=== PATIENT | female | born 1985 | race African-American/Black ===

== ENCOUNTER 2021-04-12 17:00 | Outpatient (CLI) | payer OTHER ==
[~2021-04-12] VITALS: Ht 162.6 cm; Wt 67.3 kg
[2021-04-12 17:16] VITALS: BP 115/64
[2021-04-12] MEDS ORDERED: MULTTAB20 PO (17:20)
[2021-04-12] MEDS ORDERED: ASPI81TA26 PO (17:20)
[2021-04-12] MEDS ORDERED: FISH306C PO (17:22)
[2021-04-12] MEDS ORDERED: ASCO250T20 PO (17:22)
[2021-04-12] MEDS ORDERED: IRON27TA2 PO (17:22)
[2021-04-12 18:54] LABS: APPEARANCE, URINE CLEAR (CLEAR); BACTERIA, URINE AUTO 1+ (NEGATIVE); BILIRUBIN, URINE AUTO NEGATIVE (NEGATIVE); BLOOD, URINE BLOOD NEGATIVE (NEGATIVE); COLOR, URINE STRAW (YELLOW); GLUCOSE, URINE (UA) AUTO NEGATIVE (NEGATIVE); KETONE, URINE AUTO NEGATIVE (NEGATIVE); LEUKOCYTE ESTERASE, URINE AUTO NEGATIVE (NEGATIVE); NITRITE, URINE AUTO NEGATIVE (NEGATIVE); PROTEIN, URINE AUTO NEGATIVE (NEGATIVE); RBC, URINE AUTO 0 /HPF (0-3); SPECIFIC GRAVITY URINE AUTO 1.005 (1.002-1.035); SQUAMOUS EPITHELIAL CELL UR AU 0 /HPF (0-6); UROBILINOGEN, URINE AUTO 0.2 mg/dL (0.0-2.0); WBC, URINE AUTO 1 /HPF (0-3)
[2021-04-14 11:43] LABS: GC DNA AMPLIFICATION NEGATIVE (NEGATIVE)
== END 2021-04-12 19:30 | disposition home or self-care (01) ==
LOC: M LDO 17:00
PROVIDERS: ATTEND Obstetrics & Gynecology Reproductive Endocrinology
DX: O26.893 Other specified pregnancy related conditions, third trimester (principal); R10.2 Pelvic and perineal pain; Z3A.31 31 weeks gestation of pregnancy; O09.513 Supervision of elderly primigravida, third trimester; Z88.2 Allergy status to sulfonamides; Z79.899 Other long term (current) drug therapy
CPT/HCPCS: 59025; 76815; 81001; 87086; 87661; G0378; G0463

== ENCOUNTER 2021-06-04 01:59 | Outpatient (CLI) | payer OTHER ==
[~2021-06-04] VITALS: Ht 162.6 cm; Wt 74.1 kg
[~2021-06-04 01:59] MED LIST: ASCO250T20 PO; ASPI81TA26 PO; FISH306C PO; IRON27TA2 PO; MULTTAB20 PO
[2021-06-04] MEDS ORDERED: HOME MED LIST COMPLETE! XX SCH (03:10)
[2021-06-04 03:16] VITALS: BP 120/70
--- NOTE | 2021-06-04 05:17 | IPNPDOC ---
Obstetrical Progress Note Date of Service Jun 04, 2021 Objective Vital Signs Date Time Temp Pulse Resp B/P (MAP) Pulse Ox O2 Delivery O2 Flow Rate FiO2 06/04/21 03:16 98.2 95 16 120/70 (87) Assessment Heart Rate (FHR): 130 Variability: Moderate Accelerations: Positive Decelerations: None Heart Rate Tracing: Category I Tocometer Contractions: Yes Frequency: irregular Sterile Vaginal Examination Dilation: 1cm Effacement (%): 50% Station: -3 Cervical Consistency: Soft Cervical Position: Posterior Postion/Presentation: Cephalic presentation (by US) Assessment and Plan Status: Reassuring Additional Comments Ms. Choi is a 35yo at 39+3 who presents for a labor check. She denied VB, LOF, decreased FM. She denied otherwise a 12 point ROS. VS normal. CAT I NST reactive. Irregular contractions. SVE 1cm and 1cm on 2h repeat exam. TAUS cephalic, MVP 6.5cm, +FM. Eminent active labor is unlikely at this time. I discussed with the patient that I recommend induction of labor as she is AMA and A1GDM and is at 39wk. She was educated on the risk of stillbirth. She declined and signed an against medical advice form. Educated on routine ob return precautions. Educated on kick counts. Reports has APFT testing scheduled for next week. BETZY TRUJILLO DO Jun 04, 2021 05:17
== END 2021-06-04 05:00 | disposition home or self-care (01) ==
LOC: M LDO 01:59
PROVIDERS: ATTEND Obstetrics & Gynecology
DX: O60.03 Preterm labor without delivery, third trimester (principal); Z3A.39 39 weeks gestation of pregnancy; O24.410 Gestational diabetes mellitus in pregnancy, diet controlled; O09.513 Supervision of elderly primigravida, third trimester; O99.820 Streptococcus B carrier state complicating pregnancy; O99.343 Other mental disorders complicating pregnancy, third trimester; F32.9 Major depressive disorder, single episode, unspecified; O98.513 Other viral diseases complicating pregnancy, third trimester; B00.89 Other herpesviral infection; Z88.2 Allergy status to sulfonamides
CPT/HCPCS: 59025; G0378; G0463

== ENCOUNTER 2021-06-04 20:24 | Inpatient (IN) | payer OTHER ==
[~2021-06-04] VITALS: Ht 162.6 cm; Wt 71.8 kg
[2021-06-04] MEDS ORDERED: PENICILLIN G POTASSIUM IV 5 MU in D5W MINI-BAG PLUS 100 ML IV STA ×2 (21:15→23:42)
[2021-06-04 21:25] VITALS: BP 98/60
[2021-06-04] MEDS ORDERED: miSOPROStol 50MCG 1/2 TABLET PO SCH (21:25)
[2021-06-04 21:37] LABS: HEMATOCRIT 36.2 % (36.0-47.0); HEMOGLOBIN 12.3 g/dl (12.0-15.5); MEAN CORPUSCULAR HEMOGLOBIN 31.9 pg (27.0-33.0); PLATELET COUNT, AUTOMATED 168 10^3/uL (150-450); RED BLOOD COUNT 3.85 10^6/uL (4.00-5.40); WHITE BLOOD COUNT 8.6 10^3/uL (4.0-10.0)
[2021-06-05] VITALS (50 sets, daily range): BP systolic 84–155; BP diastolic 46–79
[2021-06-05] MEDS ORDERED: FENTANYL 2MCG/ML ROPIVACAINE 0.2% IN 0.9% NACL 100ML IVBAG As Ordered ONE ×2 (00:08→08:34)
--- NOTE | 2021-06-05 00:28 | HPEPDOC ---
Obstetrical History & Physical General Date of Admission Jun 04, 2021 at 21:13 History of Present Illness The patient is a 36 yo G1 at 39+4 week gestation by LMP C/W 11 week ultrasound admitted for IOL FOR AMA. She denies any vaginal bleeding, abnormal vaginal discharge, leakage of fluids, urinary symptoms, or regular contractions. She denies any new headaches, visual abnormalities, chest pain, worsening dyspnea, facial swelling, or upper extremity swelling. At this time, she continues to report regular movement. 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 Past Medical History Surgical History: Denies/None Family History Significant Family History: No pertinent family hx Social History Marital Status: Family situation: Spouse/partner home Psychosocial History: Depression * Smoker: non-smoker Alcohol: Denies Abuse Violence Screening Have you been hit/kicked/slapp: No Have you been sexually assault: No Imunizations Tdap status: current Influenza Status: current Allergies Coded Allergies: Sulfa (Sulfonamide Antibiotics) (Verified Allergy, Intermediate, HIVES, 04/12/21) Medications Scheduled Ascorbic Acid (Vitamin C) 250 Mg Tablet, 1 TAB PO BID Aspirin (Aspirin EC) 81 Mg Tablet.dr, 1 TAB PO DAILY for pain Ferrous Gluconate (Iron) 236 Mg Tablet, 1 TAB PO DAILY Muse-3/Dha/Epa/Fish Oil (Fish Oil 500 mg Softgel) 1 Each Capsule, 1 CAP PO DAILY No122/Iron/Folic Acid ( Multi Tablet) 1 Each Tablet, 1 TAB PO DAILY Physical Examination Physical Examination GENERAL: Alert and oriented times three. BREAST: . ABDOMEN: Gravid and non-tender to touch. FETUS: Is vertex (VTX) by sterile vaginal examination (SVE) HEART RATE: Regular rate and rhythm. LUNGS: Clear to auscultation (CTA). EXTREMITIES: No edema. No clonus. sve /-1 Vital Signs/I&O Vital Signs Date Time Temp Pulse Resp B/P (MAP) Pulse Ox O2 Delivery O2 Flow Rate FiO2 06/04/21 21:25 97.7 94 98/60 (73) Laboratory Data 24H LABS Laboratory Tests 2 06/04/21 21:16: Serology Scanned Report Hepatitis B Testing 06/04/21 21:24: Nucleated Red Blood Cells % (auto) 0.0 CBC/BMP Laboratory Tests 06/04/21 21:24 Urine Culture: No Growth Pertinent Laboratoy Data Blood Type: O+ RBC Antibody Screen: Negative HIV: Negative Hepatitis B: Negative Hepatitis C: Unknown Rapid Plasma Reagin: Nonreactive Rubella: Immune Varicella: Immune Chlamydia/Gonorrhea: Negative Group B Streptococcus: Positive Quad Screen Test: Negative Cystic Fibrosis: Negative Anatomy Ultrasound Ultrasound Date: Jan 20, 2021 Placenta Location: Posterior Normal Anatomy: Yes Vaginal Examination Dilation: 5 cm Effacement: 80% Station: -1 Cervical Consistency: Soft Cervical Position: Anterior Presentation: Cephalic presentation Assessment Heart Rate (FHR): 140 Variability: Moderate Accelerations: Positive Decelerations: None Tocometer Contractions: Yes Frequency: regular Multi-drug resistant Organism: No history of MDRO Assessment/Plan Assessment Assessment: The patient is a 36 yo G1 at 39+4 week gestation by LMP C/W 11 week ultrasound admitted for IOL FOR AMA. Category I FHRT. APC: 1. AMA- Low risk NIPT 2. A1GDM 3. Depression- well controlled 4. Cervical HSV- on valtrex since 36 weeks, no s/s neg Exam on admission 5. GBS pos- no pcn allergies SVE: /-1 GBS POS Cephalic by exam EFW 3000G RH POS Plan Plan: - Admit to L&D. - Consent signed and given to RN - CBC with type and screen. - EFM x2 - Anesthesia to see - Risks of augmentation with Cytotec, and Pitocin discussed with patient. - GBS Positive. PCN ordered -CERVICAL RIPING WAS STARTED WITH 50MCG OF ORAL CYTOTEC, WILL NOW ALLOW TO GET EPIDURAL THEN START PITOCIN Labor and Delivery Counseling We will deliver your baby through the vagina with possible assistance of forceps or vacuum device if needed for maternal or indications. Forceps and vacuum are devices that can assist with vaginal delivery when normal pushing efforts cannot achieve delivery on their own or when delivery is needed in an emergency for baby's well-being. Medications may be required to induce or augment (help) your labor in order to achieve a vaginal delivery. An episiotomy may be required to help your baby to delivery vaginally. You may also require repair of any lacerations or tears of your vagina or vulva that are caused by delivery. In some cases, emergencies can occur that require an emergency section delivery so quickly that there may not be enough time to stop and complete consent forms for section. Understand that if this occurs, your providers will discuss the need for a section with you before they proceed with surgery. section is the delivery of your baby through an incision in your abdomen. In some situations, section may be safer to mom and baby than continuing labor and is only performed when clinically indicated. Risks of vaginal delivery include but are not limited to: Bleeding, infection, injury to the vagina, pelvic structures, injury to baby, damage to the uterus, reactions to anesthesia, uterine rupture, risk of hysterectomy for life threatening bleeding, or . Medications used to induce or augment labor may increase your risk for infection, uterine tachysystole, uterine rupture, heart rate abnormalities, need for emergency delivery or possible hysterectomy, and hemorrhage. Additional risks for use of forceps and vacuum include: increased risk of perineal and vaginal lacerations, risk of urinary or bowel incontinence, increased risk of injury to baby with bruising, scratches, hematomas on the head, or intracranial bleeding. MARIANA GOETZ MD Jun 04, 2021 11:52 pm
[2021-06-05] MEDS ORDERED: PENICILLIN G POTASSIUM IV 2.5 MU in IV 1 EA IV SCH (01:15)
--- NOTE | 2021-06-05 01:18 | IPNPDOC ---
Obstetrical Progress Note Date of Service Jun 05, 2021 Subjective to room for assessment. patient now feeling comfortable. fht: 140, mod tremaine,+accwels, -Decels--Cat I tracing SVE: /-1, AROM CLEAR TOCO: 4-5/10 A/P ACTIVE LABOR. CAT i TRACING. ANTICIPATE . Objective Vital Signs Date Time Temp Pulse Resp B/P (MAP) Pulse Ox O2 Delivery O2 Flow Rate FiO2 06/04/21 21:25 97.7 94 98/60 (73) MARIANA GOETZ MD Jun 05, 2021 01:18
[2021-06-05] MEDS ORDERED: ePHEDrine SULFATE 25 MG/5 ML(5MG/ML) SYRINGE As Ordered ONE (01:24)
[2021-06-05] MEDS: ePHEDrine SULFATE 25 MG/5 ML(5MG/ML) SYRINGE IV PRN ×3 (01:25→01:41)
[2021-06-05] MEDS ORDERED: EPIDURAL COMMENT XX SCH (01:30)
[2021-06-05] MEDS ORDERED: FENTANYL/ROPIVACAINE/NACL BAG 100 ML EPIDURAL SCH (01:30)
[2021-06-05] MEDS ORDERED: diphenhydrAMINE 50MG/ML VIAL (J1200) IV PRN (01:30)
[2021-06-05] MEDS ORDERED: NALOXONE INJ 0.4MG/1ML VIAL (J2310 PER 1MG) IV PRN (01:30)
[2021-06-05] MEDS ORDERED: EPIDURAL/PCA KEYS XX PRN (01:30)
[2021-06-05] MEDS ORDERED: ONDANSETRON 4MG/2ML VIAL IV PRN (01:30)
[2021-06-05] MEDS ORDERED: REFRIGERATOR IV KEYS XX PRN (01:30)
[2021-06-05] MEDS ORDERED: TERBUTALINE SULFATE 1 MG/ML VIAL (J3105) SC ONE (02:55)
[2021-06-05] MEDS: PENICILLIN G POTASSIUM IV 2.5 MU in IV 1 EA IV SCH ×3 (04:15→13:20)
--- NOTE | 2021-06-05 09:13 | IPNPDOC ---
Obstetrical Progress Note Date of Service Jun 05, 2021 Subjective TO room for assessment. Patient is comfortable in bed. fht: 150, mod tremaine,+accels, -decel--Cat I Tracing Rozel: 01/24/10, patient had tachysystole around 3 am and was given one dose on 0.25mg of terbutaline. she has only received 50mcg of cytotec for induction and she continues to have regular contrations SVE: Lateral lip on the left side, c/0, caput felt A/P Active labor. lateral lip left. continue active management. cat I tracing. anticipate . Objective Vital Signs Date Time Temp Pulse Resp B/P (MAP) Pulse Ox O2 Delivery O2 Flow Rate FiO2 06/05/21 08:12 85 18 119/71 (87) 06/05/21 07:11 98.2 MARIANA GOETZ MD Jun 05, 2021 09:13
[2021-06-05] MEDS ORDERED: OXYTOCIN INJ 10 UNITS/ML VIAL (J2590) IV PRN (09:40)
[2021-06-05] MEDS ORDERED: OXYTOCIN DRIP 30 UNITS in IV 1 EA IV PRN ×6 (09:40)
[2021-06-05] MEDS ORDERED: OXYTOCIN INJ 10 UNITS/ML VIAL (J2590) IM PRN (09:40)
[2021-06-05] MEDS ORDERED: LIDOCAINE 1% MDV 20ML VIAL INFIL PRN (09:40)
[2021-06-05] MEDS ORDERED: METHYLERGONOVINE MALEATE 0.2 MG/ML VIAL (J2210) IM PRN (09:40)
[2021-06-05] MEDS ORDERED: TRANEXAMIC ACID INJection 1,000 MG in NS 100 ML IV PRN (09:40)
[2021-06-05] MEDS ORDERED: CARBOPROST TROMETHAMINE 250 MCG/ML AMP IM PRN (09:40)
[2021-06-05] MEDS: LACTATED RINGER'S 1000 ML IV PRN ×2 (10:47→16:59)
[2021-06-05] MEDS ORDERED: OXYTOCIN DRIP 30 UNITS in IV 1 EA IV SCH ×2 (13:55→17:55)
[2021-06-05 17:21] LABS: CORD GAS ABE A -9.2; CORD GAS HCO3 A 20.2 MEQ/L; CORD GAS O2 SAT A 63.3 %; CORD GAS PH A 7.159 UNITS; CORD GAS PO2 A 28.7 mmHg; CORD GAS SBC A 16.5 MEQ/L; CORD GAS TCO2 A 21.9 MEQ/L
[2021-06-05 17:23] LABS: CORD GAS ABE V -8.3; CORD GAS HCO3 V 16.9 MEQ/L; CORD GAS O2 SAT V 92.9 %; CORD GAS PCO2 V 34.4 mmHg; CORD GAS PH V 7.31 UNITS; CORD GAS PO2 V 52.5 mmHg; CORD GAS SBC V 17.8 MEQ/L
[2021-06-05] MEDS ORDERED: DOCUSATE SODIUM 100MG CAPSULE PO PRN (17:55)
[2021-06-05] MEDS ORDERED: MOM 30ML SUSPENSION UDC PO PRN (17:55)
[2021-06-05] MEDS ORDERED: DIBUCAINE 1% OINTMENT 30GM TOP PRN (17:55)
[2021-06-05] MEDS ORDERED: ANUSOL HC CREAM 30GM TOP PRN (17:55)
--- NOTE | 2021-06-05 18:19 | DNPDOC ---
[facility] Delivery Note Delivery Note DATE OF DELIVERY:06/04/2021 PREDELIVERY DIAGNOSIS: 39-3/7 weeks' gestation and labor. POST DELIVERY DIAGNOSIS: shoulder dystocia PROCEDURE: shoulder dystocia TETRYL BOILING TUB OPERATOR: Dr. Mariana vallecillo ANESTHESIA: epidural ESTIMATED BLOOD LOSS: 200 mL. FINDINGS: shouldert dystocia , pound 8 #9ounce 3888g Make , Score / DELIVERY SUMMARY: Patient is a 36-year-old 1 now para 1 who was admitted to labor and delivery for IOL for AMA. She also had A1GDM. Patient progressed to C/C/+2 and with good maternal effort delivered a viable 3888g male infant with APGARS of 38. The infants head delivered OA. After delivery of the head, with appropriate downward traction in the standard fashion, the anterior, right shoulder did not deliver spontaneously. At this time, additional staff, including pediatrics, was requested, and Oriana position employed, along with suprapubic pressure and delivery of the posterior arm ( left). With these maneuvers, the anterior shoulder delivered, followed by the posterior shoulder and rest of . The normal 3-vessel cord was clamped x 2 and cut by the physician. At that time, the infant was handed to pediatrics for their assessment. The time from delivery of the head to delivery of the shoulders was approximately 45 seconds. Cord blood obtained. Placenta delivered spontaneously and inspection of the placenta demonstrated that it was intact. The cord insertion appeared normal. The uterus was cleared of all clots and debris. Fundal massage until firm. Pitocin 30 units IV administered as per p rotocol and 1000mcg of cytotec was given. Inspection of cervix, perineum, and vaginal wall 2nd degree MLL, that was closed in a standard fashion with 2.0. vicryl suture with good hemostasis. Repeat uterine examination noted uterine tone to be adequate and firm. Vaginal sweep performed. Lap, sponge, and needle count correct x 2. mother was in stable condition upon my departure. was taken to the nicu for more observation. MARIANA VALLECILLO MD Jun 05, 2021 18:19
[2021-06-05] MEDS: IBUPROFEN 800 MG TAB PO PRN (18:20)
[2021-06-06] VITALS: BP 109/59
[2021-06-06] MEDS: ACETAMINOPHEN 500 MG TAB PO PRN ×2 (00:09→08:07)
[2021-06-06 06:00] VITALS: BP 116/60
--- NOTE | 2021-06-06 07:24 | IPNPDOC ---
Progress Note Date of Service: Jun 06, 2021 Day#: 1 Progress Note SUBJECT: Marcel is a 36 YO S/P Vaginal delivery complicated by shoulder dystocia of an 8 pound #9ounce 3888g Male , Score 3/6/8/.patient was induced at 39 weeks for AMA, and she also had A1GDM. She has been ambulating, voiding spontaneously without issue and tolerating regular diet. Breast feeding without issue. Reports lochia is like a normal period. OBJECTIVE: VITAL SIGNS: Within normal limits, afebrile. Alert and oriented times three. Breath sounds clear to auscultation. Heart rate: Regular rate and rhythm, no murmurs, rubs or gallops. Abdomen: Fundus firm at U-2. Soft, NTTP. ASSESSMENT: Marcel is a 36 YO S/P Vaginal delivery complicated by shoulder dystocia of an 8 pound #9ounce 3888g Male , Score 3/6/8/.patient was induced at 39 weeks for AMA, and she also had A1GDM.. Vitals within normal limits, afebrile, hemodynamically stable with no evidence of infection. PLAN: 1. Discharge to home toMORROW. 2. Tylenol and Motrin for pain. 3. Encourage breast feeding and ambulation. 4. abstinence-single for contraception for now. 5. Routine PP visit in 6 weeks in clinic. 6. Discussed return precautions at length. VS, I&O, 24H, Fishbone Vital Signs/I&O Vital Signs Date Time Temp Pulse Resp B/P (MAP) Pulse Ox O2 Delivery O2 Flow Rate FiO2 06/06/21 00:00 99.5 87 20 109/59 (76) 100 Room Air I&O- Last 24 Hours up to 6 AM 06/06/21 06:00 Intake Total 2520 ml Output Total 1100 ml Balance 1420 ml Laboratory Data 24H LABS Laboratory Tests 2 06/05/21 17:15: Cord Arterial Blood pH 7.159, Cord Arterial Blood PCO2 58.0, Cord Arterial Blood PO2 28.7, Cord Arterial Blood HCO3 20.2, Cord Arterial Blood Total CO2 21.9, Cord Arterial Blood Base Excess -9.2, Cord Arterial Base Excess (Standard 16.5, Cord Arterial Bld Oxygen Saturation 63.3, Cord Venous Blood pH 7.310, Cord Venous Blood PCO2 34.4, Cord Venous Blood PO2 52.5, Cord Venous Blood HCO3 16.9, Cord Venous Blood Total CO2 18.0, Cord Venous Base Excess (Actual) -8.3, Cord Venous Base Excess (Standard) 17.8, Cord Venous Blood Oxygen Saturation 92.9 MARIANA GOETZ MD Jun 06, 2021 6:04 am
[2021-06-06] MEDS: PRENATAL VITAMINS CHEWABLE TABLET PO SCH (08:05)
[2021-06-06 18:00] VITALS: BP 105/63
[2021-06-07] MEDS: IBUPROFEN 800 MG TAB PO PRN (01:59)
[2021-06-07 05:44] VITALS: BP 90/50
--- NOTE | 2021-06-07 07:17 | OBDS ---
[facility] Obstetrical Discharge Sum. Obstetrical Discharge Summary Date: Jun 07, 2021 Labor Patient admitted in labor at term. S/p vaginal delivery complicated by shoulder dystocia. DATE OF DELIVERY:06/04/2021 PREDELIVERY DIAGNOSIS: 39-3/7 weeks' gestation and labor. POST DELIVERY DIAGNOSIS: shoulder dystocia PROCEDURE: shoulder dystocia METAL SPRAYER PROTECTIVE COATING: Dr. Shell vallecillo ANESTHESIA: epidural ESTIMATED BLOOD LOSS: 200 mL. FINDINGS: shouldert dystocia , pound 8 #9ounce 3888g Make , Score 3/6/8/ DELIVERY SUMMARY: Patient is a 36-year-old 1 now para 1 who was admitted to labor and delivery for IOL for AMA. She also had A1GDM. Patient progressed to C/C/+2 and with good maternal effort delivered a viable 3888g male with APGARS of 3/6/8. The infants head delivered OA. After delivery of the head, with appropriate downward traction in the standard fashion, the anterior, right shoulder did not deliver spontaneously. At this time, additional staff, including pediatrics, was requested, and Oriana position employed, along with suprapubic pressure and delivery of the posterior arm ( left). With these maneuvers, the anterior shoulder delivered, followed by the posterior shoulder and rest of infant. The normal 3-vessel cord was clamped x 2 and cut by the physician. At that time, the infant was handed to pediatrics for their assessment. The time from delivery of the head to delivery of the shoulders was approximately 45 seconds. Cord blood obtained. Placenta delivered spontaneously and inspection of the placenta demonstrated that it was intact. The cord insertion appeared normal. The uterus was cleared of all clots and debris. Fundal massage until firm. Pitocin 30 units IV administered as per protocol and 1000mcg of cytotec was given. Inspection of cervix, perineum, and vaginal wall 2nd degree MLL, that was closed in a standard fashion with 2.0. vicryl suture with good hemostasis. Repeat uterine examination noted uterine tone to be adequate and firm. Vaginal sweep performed. Lap, sponge, and needle count correct x 2. mother was in stable condition upon my departure. Infant was taken to the nicu for more observation. Exam on day of discharge: SUBJECT:Daniel is a 36 YO S/P Vaginal delivery complicated by shoulder dystocia of an 8 pound #9ounce 3888g Male infant, Score 3/6/8/.patient was induced at 39 weeks for AMA, and she also had A1GDM. She has been ambulating, voiding spontaneously without issue and tolerating regular diet. Breast feeding without issue. Reports lochia is like a normal period. OBJECTIVE: VITAL SIGNS: Within normal limits, afebrile. Alert and oriented times three. normal work of breathing Heart rate: Regular rate and rhythm, no murmurs, rubs or gallops. Abdomen: Fundus firm at U-2. Soft, NTTP. Vital Signs Date Time Temp Pulse Resp B/P (MAP) Pulse Ox O2 Delivery O2 Flow Rate FiO2 06/07/21 05:44 98.4 70 17 90/50 (63) 96 Room Air 06/06/21 18:00 98.3 85 18 105/63 (77) 100 Room Air Intake & Output 06/07/21 05:59 Intake Total 240 ml Balance 240 ml Current Medications Medications (Trade) Dose Ordered Sig/Vishal Route PRN Reason Start Time Stop Time Status Last Admin Dose Admin Acetaminophen (Tylenol Tab) 1,000 mg Q6HP PRN PO PAIN LEVEL 6-10 06/05/21 17:55 06/06/21 08:07 1,000 MG Dibucaine (Dibucaine 1%) Apply to perineum Q4H PRN TOP comfort 06/05/21 17:55 06/06/21 00:08 1 DOSE Hydrocortisone (Proctosol Hc) APPLY TO HEMORRHOIDS Q4HP PRN TOP comfort 06/05/21 17:55 06/06/21 12:34 1 DOSE Ibuprofen (Advil) 800 mg Q8HP PRN PO PAIN LEVEL 6-10 06/05/21 17:55 06/07/21 01:59 800 MG Prenat Multivit/ [place]/Iron/Folic Ac ( Vitamins) 1 tab DAILY PO 06/06/21 09:00 06/06/21 08:05 1 TAB ASSESSMENT: Daniel is a 36 YO PPD #2 S/P Vaginal delivery complicated by shoulder dystocia of an 8 pound #9ounce 3888g Male infant, Score 3/6/8/.patient was induced at 39 weeks for AMA, and she also had A1GDM.. Vitals within normal limits, afebrile, hemodynamically stable with no evidence of infection. PLAN: 1. Discharge to home today to boarding. Baby in NNICU - on nasal cannula 2. Tylenol and Motrin for pain. 3. Encourage breast feeding and ambulation. 4. abstinence-single for contraception for now. 5. Routine PP visit in 6 weeks in clinic. 6. Discussed return precautions at length. A/P, Post Course List any complications Admission diagnosis: . Discharge diagnosis: Condition at Discharge: Discharge Instructions: [Home/other] Activity: Diet: Medications: Follow-up: Other: BART MCKEON M.D. Jun 07, 2021 07:15
[2021-06-07] MEDS: PRENATAL VITAMINS CHEWABLE TABLET PO SCH (07:55)
[2021-06-07] MEDS: ACETAMINOPHEN 500 MG TAB PO PRN (07:55)
== END 2021-06-07 15:00 | disposition home or self-care (01) | DRG 806 ==
LOC: M LDO 20:24 → M LDI 21:13 → M OBS 06-05 23:46
PROVIDERS: ADMIT Obstetrics & Gynecology; ATTEND Obstetrics & Gynecology
PROC: 10E0XZZ Delivery of Products of Conception, External Approach (ICD-10-PCS; principal; 2021-06-04)
PROC: 0KQM0ZZ Repair Perineum Muscle, Open Approach (ICD-10-PCS; 2021-06-04)
PROC: 10907ZC Drainage of Amniotic Fluid, Therapeutic from Products of Conception, Via Natural or Artificial Opening (ICD-10-PCS; 2021-06-04)
PROC: 3E033VJ Introduction of Other Hormone into Peripheral Vein, Percutaneous Approach (ICD-10-PCS; 2021-06-04)
DX: O24.429 Gestational diabetes mellitus in childbirth, unspecified control (principal); Z37.0 Single live birth; O98.52 Other viral diseases complicating childbirth; Z3A.39 39 weeks gestation of pregnancy; O09.523 Supervision of elderly multigravida, third trimester; O99.824 Streptococcus B carrier state complicating childbirth; B00.9 Herpesviral infection, unspecified; Z88.2 Allergy status to sulfonamides; O70.1 Second degree perineal laceration during delivery

== ENCOUNTER 2021-06-15 10:45 | Day surgery (SDC) | payer OTHER ==
[2021-06-15] MEDS ORDERED: NS 1,000 ML IV ONE (11:05)
[2021-06-15 11:40] LABS: BASO % 0.2 % (0.0-1.0); EOS # 0.1 10^3/uL (0.0-0.5); EOS % 0.3 % (0.0-3.0); HEMATOCRIT 33.9 % (36.0-47.0); HEMOGLOBIN 11.4 g/dl (12.0-15.5); LYMPH # 1.7 10^3/uL (1.5-5.0); LYMPH % 9.5 % (24.0-44.0); MEAN CORPUSCULAR HEMOGLOBIN 31.8 pg (27.0-33.0); MEAN CORPUSCULAR HGB CONC 33.6 g/dl (32.0-36.5); MEAN CORPUSCULAR VOLUME 94.4 fl (80.0-96.0); MONO # 0.7 10^3/uL (0.0-0.8); NEUTROPHILS # 15.1 10^3/uL (1.5-8.5); NEUTROPHILS % 85.5 % (36.0-66.0); PLATELET COUNT, AUTOMATED 226 10^3/uL (150-450); RED BLOOD COUNT 3.59 10^6/uL (4.00-5.40); WHITE BLOOD COUNT 17.7 10^3/uL (4.0-10.0)
[2021-06-15 11:51] LABS: INR 1.1; PROTHROMBIN TIME 14.6 SECONDS (12.7-14.5)
[2021-06-15 11:52] LABS: PARTIAL THROMBOPLASTIN TIME 32.2 SECONDS (25.9-37.0)
[2021-06-15 12:00] LABS: BLOOD UREA NITROGEN 10 MG/DL (7-18); CALCIUM LEVEL 8.4 MG/DL (8.5-10.1); CARBON DIOXIDE LEVEL 26 MEQ/L (21-32); CHLORIDE LEVEL 113 MEQ/L (98-107); CREATININE FOR GFR 0.66 MG/DL (0.55-1.30); GLOMERULAR FILTRATION RATE > 60.0 (>60); GLUCOSE, FASTING 82 MG/DL (70-100); POTASSIUM SERUM 4.2 MEQ/L (3.5-5.1); SODIUM LEVEL 143 MEQ/L (136-145)
--- NOTE | 2021-06-15 12:10 | REP ---
INDICATION: post hemorrhage COMPARISON: None. TECHNIQUE: Transabdominal pelvic ultrasound with color Doppler evaluation of the ovaries. FINDINGS: Bladder is unremarkable and partially collapsed measuring 7.8 x 2.3 x 3.7 cm. The uterus is enlarged and measures 17.7 x 8.9 x 11.9 cm. Thickened heterogeneous endometrial complex 6.3 cm measures. Findings may represent hemorrhagic debris although retained products of conception cannot be excluded. Bilateral ovaries are normal in appearance and vascularity without evidence for torsion. Right ovary measures 2.5 x 1.8 x 2.3 cm; R I = 0.56. Left ovary measures 3.7 x 1.0 x 3.1 cm; R I = 0.56. No pelvic fluid or adnexal mass lesion. IMPRESSION: 1. Thickened heterogeneous endometrial complex, but without significant vascularity suggests hemorrhagic debris. Differential diagnosis cannot exclude retained products of conception. <Electronically signed by Jose G Parker > 06/15/21 [id number]
[2021-06-15] MEDS ORDERED: NS 1,000 ML IV SCH (13:15)
[2021-06-15] MEDS ORDERED: FISH10002 PO (13:32)
[2021-06-15] MEDS ORDERED: IBUP1TAB7 PO (13:32)
[2021-06-15] MEDS ORDERED: VALT1TAB PO (13:32)
[2021-06-15] MEDS ORDERED: ACET1TAB55 PO (13:32)
[2021-06-15] MEDS ORDERED: DOCU100C16 PO (13:32)
[2021-06-15 13:33] LABS: HEMATOCRIT 29.4 % (36.0-47.0)
[2021-06-15] MEDS ORDERED: HOME MED LIST COMPLETE! XX SCH (13:35)
--- NOTE | 2021-06-15 13:37 | CR.PDOC ---
General Date of Consultation: Jun 15, 2021 Consultation The patient is a 36 yo presents to the ER on day 10 with heavy vaginal bleeding. States bleeding began overnight, and reports having saturated a pad with large clots every 1-2 hrs. She also reports associated dizziness/lightheadedness. On my evaluation of her in the ER, states she actively feels blood coming from vagina and feels heart palpitations. Otherwise denies fevers, chills, etc. 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 Past Medical History Surgical History: Denies/None Family History Significant Family History: No pertinent family hx Social History Marital Status: Family situation: Spouse/partner home Psychosocial History: Depression * Smoker: non-smoker Alcohol: Denies Abuse Violence Screening Have you been hit/kicked/slapp: No Have you been sexually assault: No Imunizations Tdap status: current Influenza Status: current Allergies Coded Allergies: Sulfa (Sulfonamide Antibiotics) (Verified Allergy, Intermediate, HIVES, 04/12/21) Medications Scheduled Ascorbic Acid (Vitamin C) 250 Mg Tablet, 1 TAB PO BID Aspirin (Aspirin EC) 81 Mg Tablet.dr, 1 TAB PO DAILY for pain Ferrous Gluconate (Iron) 236 Mg Tablet, 1 TAB PO DAILY [place]-3/Dha/Epa/Fish Oil (Fish Oil 500 mg Softgel) 1 Each Capsule, 1 CAP PO DAILY No122/Iron/Folic Acid ( Multi Tablet) 1 Each Tablet, 1 TAB PO DAILY Physical Examination Physical Examination GENERAL: Alert and oriented times three. ABDOMEN: Fundus firm at U-1 HEART RATE: Regular rate and rhythm. LUNGS: Clear to auscultation (CTA). EXTREMITIES: No edema. No clonus. Pelvic: pad from 1 hr ago completely saturated with large clots. Attempted speculum exam, moderate amount of clots and bright red blood coming from vagina. Unable to visualize cervix. Plan for D&C in OR Assessment/Plan -Discussed D&C with patient to clear uterus of any possible retained products. H/H currently stable, will repeat now en route to OR. Rapid covid screen obtained. Pt consented and all questions answered. Vital Signs/I&O Vital Signs Date Time Temp Pulse Resp B/P (MAP) Pulse Ox O2 Delivery O2 Flow Rate FiO2 06/15/21 12:39 99.1 83 18 100 Room Air 06/15/21 11:27 120/71 (87) 125/77 (93) 106/58 (74) Laboratory Data Labs 24H Laboratory Tests 2 06/15/21 11:08: Immature Granulocyte % (Auto) 0.5, Neutrophils (%) (Auto) 85.5H, Lymphocytes (%) (Auto) 9.5L, Monocytes (%) (Auto) 4.0, Eosinophils (%) (Auto) 0.3, Basophils (%) (Auto) 0.2, Neutrophils # (Auto) 15.1H, Lymphocytes # (Auto) 1.7, Monocytes # (Auto) 0.7, Eosinophils # (Auto) 0.1, Basophils # (Auto) 0.0, Nucleated Red Blood Cells % (auto) 0.0, Prothrombin Time 14.6H, Prothromb Time International Ratio 1.10, Activated Partial Thromboplast Time 32.2, Anion Gap 4L, Glomerular Filtration Rate > 60.0, Calcium Level 8.4L CBC/BMP Laboratory Tests 06/15/21 11:08 Allergies Coded Allergies: Sulfa (Sulfonamide Antibiotics) (Verified Allergy, Intermediate, HIVES, 04/12/21) Home Medications Scheduled Ferrous Gluconate (Iron) 236 Mg Tablet, 1 TAB PO DAILY for 30 Days, #30 (Reported) [place]-3/Dha/Epa/Fish Oil (Fish Oil 500 mg Softgel) 1 Each Capsule, 1 CAP PO DAILY for 30 Days, #30 (Reported) No122/Iron/Folic Acid ( Multi Tablet) 1 Each Tablet, 1 TAB PO DAILY for 30 Days, #30 (Reported) BART MCKEON M.D. Jun 15, 2021 13:37
[2021-06-15] MEDS ORDERED: fentaNYL 100 MCG/2 ML INJECTION (J3010) As Ordered ONE (13:39)
[2021-06-15] MEDS ORDERED: MIDAZOLAM INJ 2MG/2ML VIAL (J2250 PER 1MG) As Ordered ONE (13:39)
[2021-06-15] MEDS ORDERED: LR 1,000 ML IV SCH ×2 (13:40→15:25)
[2021-06-15] MEDS ORDERED: ceFAZolin 2 GM/D5W 50 ML IV BAG (J0690 PER 500MG) As Ordered ONE (14:20)
[2021-06-15] MEDS: PHENYLephrine 500MCG 5ML (100MCG/ML) SYRINGE IV PRN ×2 (15:10→15:15)
--- NOTE | 2021-06-15 15:15 | ROOPDOC ---
[facility] Report Of Operation Report of Operation DATE OF PROCEDURE: 06/15/21 PREPROCEDURE DIAGNOSES: Delayed hemorrhage, possible retained products POSTPROCEDURE DIAGNOSES: same as above PROCEDURE PERFORMED: Suction dilation and curettage SURGEON: Autumn Mckeon MD ANESTHESIA: spinal. ESTIMATED BLOOD LOSS: Approximately 100 mL. COMPLICATIONS: none. REMARKS: approximately 300cc of clear urine drained prior to procedure. 1000mcg cytotec inserted per rectum following procedure FINDINGS: Cervix dilated 1cm with moderate amount of blood clots expressed with fundal pressure. Moderate amount of blood and tissue obtained during procedure. SPECIMENS REMOVED: suspected retained placental tissue DESCRIPTION OF PROCEDURE: Patient taken to OR with IV fluids running. Spinal performed for anesthesia and found to be adequate. SCD's placed. Patient prepped and draped in dorsal lithotomy position in Randall stirrups. Time out performed. Bladder drained, clear urine noted. Bimanual exam performed with moderate amount of blood/clots expelled. Uterus firm, anteverted. Cervix dilate d to 1cm. Prior repair from perineal laceration is intact. Speculum inserted and anterior lip of cervix grasped with ringed forceps. 9mm suction curette inserted to uterine fundus and moderate amount of clot/tissue noted in tubing. Sharp curette inserted with smooth area noted along anterior wall of uterus. Gentle curettage performed until gritty texture noted globally. Suction curette reinserted and uterus cleared of remaining clot. Minimal blood noted in tubing. Vagina reinspected with good hemostasis noted. All vaginal instruments removed and 1000mcg of cytotec inserted MO as prophylaxis. Patient taken to PACU in stable condition and family updated. AUTUMN MCKEON M.D. Jun 15, 2021 15:15
[2021-06-15] MEDS ORDERED: oxyCODONE 5MG TAB PO PRN (15:25)
[2021-06-15] MEDS ORDERED: ONDANSETRON 4MG/2ML VIAL IV PRN (15:25)
[2021-06-15] MEDS ORDERED: fentaNYL 100 MCG/2 ML INJECTION (J3010) IV PRN (15:25)
[2021-06-15] MEDS ORDERED: MEPERIDINE INJ 25 MG/ML VIAL (J2175) As Ordered ONE (15:31)
[2021-06-15] MEDS ORDERED: MEPERIDINE INJ 25 MG/ML VIAL (J2175) IV PRN (15:35)
[2021-06-15] MEDS ORDERED: METH0.2T53 PO (16:46)
[2021-06-15] MEDS ORDERED: FERR325T3 PO (16:47)
[2021-06-15 16:50] VITALS: BP 136/81
== END 2021-06-15 17:03 | disposition home or self-care (01) ==
LOC: EDBD 10:45 → M ED 10:45 → M SDC 10:46 → M ED 13:15 → M SDC 17:03
PROVIDERS: ATTEND Physician Assistant Medical
DX: O72.2 Delayed and secondary postpartum hemorrhage (principal); Z88.1 Allergy status to other antibiotic agents; Z88.2 Allergy status to sulfonamides
CPT/HCPCS: 59160; 76856; 80048; 85014; 85018; 85025; 85610; 85730; 86850; 86900; 86901; 88305; 93976; 99284; J0690; J2175; J2250; J2370; J3010; U0002